=== PATIENT | female | born 1945 | race Caucasian/White ===

== ENCOUNTER → 2024-02-11 12:33 | Outpatient (REF) | payer OTHER, SELFPAY | LOC: WDC 12:33 | PROVIDERS: ATTENDING PHYSICIAN Internal Medicine | DX: Z12.31 Encounter for screening mammogram for malignant neoplasm of breast (principal); M85.80 Other specified disorders of bone density and structure, unspecified site | CPT/HCPCS: 77063; 77067; 77080 ==

== ENCOUNTER → 2024-03-20 06:20 | Day surgery (SDC) | payer OTHER, SELFPAY | LOC: GI 06:20 | PROVIDERS: ATTENDING PHYSICIAN Specialist | DX: K22.70 Barrett's esophagus without dysplasia (principal); K44.9 Diaphragmatic hernia without obstruction or gangrene; K21.00 Gastro-esophageal reflux disease with esophagitis, without bleeding; K31.7 Polyp of stomach and duodenum | CPT/HCPCS: 43239; 88305 ==

== ENCOUNTER 2024-12-01 06:06 | Day surgery (SDC) | payer OTHER, SELFPAY ==
[2024-11-04 14:03] VITALS: BMI 32.5
[2024-11-04 14:29] LABS: Hematocrit 40.7 % (37.0-47.0); Hemoglobin 13.5 g/dL (12.0-16.0); Mean Corp Hgb Conc. 33.2 g/dL (33.0-37.0); Mean Corpuscular Hgb 29.2 pg (27.0-31.0); Mean Corpuscular Volume 88.1 fL (81.0-99.0); Mean Platelet Volume 10.6 fL (7.4-10.4); Platelet Count 260 10^3/uL (130-400); Red Blood Cell Count 4.62 10^6/uL (4.20-5.40); Red Cell Dist. Width 14.6 % (11.5-14.5); White Blood Cell Count 6.8 10^3/uL (4.8-10.8)
[2024-11-04 15:08] VITALS: BMI 32.5
[2024-11-04 15:29] LABS: ALT (SGPT) 41 U/L (0-35); AST (SGOT) 31 U/L (14-36); Albumin 4.5 g/dl (3.5-5.0); Alkaline Phosphatase 114 U/L (38-126); Blood Urea Nitrogen 19 mg/dl (7-17); Calcium 9.4 mg/dl (8.4-10.2); Carbon Dioxide 27 mmol/L (22-30); Chloride 105 mmol/L (98-107); Estimated Creatinine Clearance 61 ml/min; Glucose 84 mg/dl (70-99); Sodium 143 mmol/L (135-145); Total Bilirubin 0.6 mg/dl (0.2-1.3); Total Protein 6.8 g/dl (6.3-8.2); eGFR > 60.00
[2024-11-05 10:22] LABS: Glycohemoglobin (HgbA1c) 6.5 % (4.0-5.6)
--- NOTE | 2024-11-17 13:33 | VNURNOTE ---
Patient is scheduled for an elective R TKA on 12/01- She is a same day patient with Dr Broderick. Spoke with patient prior to surgery. Introduced role of [facility] VN Liaison. Patient reports that she lives alone in a one-story in-law suite attached
to her son's house.
There are 2 [address] to enter. No pets in her in-law suite.
She has a shower chair, grab bars, cane and rolling walker.
She had VN services after her prior knee replacement and was same day surgery.
PCP is Dr Naina Patel.
Reviewed [facility] joint protocol and post surgical plans.
Reviewed that she will have VN services initially and will then start outpatient PT.
Patient selects [facility] VN for home care needs and will go to [facility] for outpatient PT. Scheduled for 12/04.
Patient is in agreement with plan and states that her daughter will pick her up after surgery. She stated that her family and daughters will assist after surgery. Advised to bring RW with her day of surgery. Referral placed in [facility].
Plan: [facility] VN per [facility] joint protocol then outpt PT on 12/04
[2024-12-01] VITALS (12 sets, daily range): BP systolic 90–140; BP diastolic 48–86; PULSE 85; O2SAT 98
[2024-12-01] MEDS: CELEBREX 200 MG PO (06:41)
[2024-12-01] MEDS: TYLENOL 650 MG PO (06:41)
[2024-12-01] MEDS: NORMOSOL-R/PLASMALYTE-A 1000 IV (06:42)
--- NOTE | 2024-12-01 06:57 | W.DS.TRANS ---
DC Summary - Director It Project
-
Discharge Instructions:
Sleep Apnea Risk Intermediate
Discharge Diagnosis/Procedures R TKA 12/01/25
Diet As tolerated
Activity With Walker
Additional Activity Adequate hydration, minimize Oxy and wear TEDs
stockings to prevent low blood pressure/
dizziness
Driving Restrictions No driving
Bathing Restrictions OK to Shower
Other Services PT
Instructions:
Stand-Alone Forms: SDS Total Hip and Knee D/C
Changes to Home Medications: Yes
Discharge Medications:
DC Medications w/original date entered in [employer]
L.acidoph,paracasei,B.animalis 10 billion cell capsule 1 ea PO DAILY 01/20/21
ascorbic acid (vitamin C) 1,000 mg tablet (Vitamin C) 1,000 mg PO DAILY 01/20/21
atorvastatin 40 mg tablet 40 mg PO QPM 01/20/21
coenzyme Q10 50 mg capsule (Co Q-10) 100 mg PO DAILY 01/20/21
magnesium oxide 500 mg capsule 500 mg PO DAILY 01/20/21
multivitamin 1 ea PO DAILY 01/20/21
cholecalciferol (vitamin D3) 125 mcg (5,000 unit) tablet (Vitamin D3) 125 mcg PO DAILY 05/11/22
krill 350 mg-omega-3 90 mg-dha 24 mg-epa 50 mp-njlmpyh-uuous capsule (Cactus-3 Krill Oil) 1 cap PO DAILY 05/11/22
omeprazole 20 mg tablet,delayed release 20 mg PO DAILY 11/03/24
zinc acetate 50 mg (zinc) capsule 50 mg PO DAILY 11/03/24
celecoxib 200 mg capsule 200 mg PO DAILY Anti-inflammatory #14 caps 11/04/24
dexamethasone 4 mg tablet 4 mg PO BID inflammation #6 tabs 11/04/24
gabapentin 300 mg capsule 300 mg PO HS sleep/pain #10 caps 11/04/24
mupirocin 2 % topical ointment 1 applic topical BID infection prevention #1 tube 11/04/24
ondansetron 4 mg disintegrating tablet 4 mg PO Q6H PRN n/v #20 tabs 11/04/24
oxycodone 5 mg tablet 5 mg PO Q6H PRN 1 tab moderate pain, 2 tabs severe pain #30 tabs 11/04/24
acetaminophen 325 mg tablet (Tylenol) 650 mg (2 x 325 mg) PO QID #1 tab 12/01/24
aspirin 325 mg tablet 325 mg PO DAILY blood clot prevention #1 tab 12/01/24
docusate sodium 100 mg capsule (Colace) 100 mg PO BID stool softner #1 cap 12/01/24
hydrochlorothiazide 12.5 mg tablet 12.5 mg PO DAILY #1 tab 12/01/24
lisinopril 5 mg tablet 5 mg PO DAILY #0 tabs 12/01/24
magnesium hydroxide 400 mg/5 mL oral suspension (Milk of Magnesia) 30 ml PO HS PRN constipation #1 mL 12/01/24
sennosides 8.6 mg tablet (Senokot) 17.2 mg (2 x 8.6 mg) PO BID laxative #2 tabs 12/01/24
Home Medication Changes
celecoxib 200 mg capsule 200 mg PO DAILY Anti-inflammatory #14 caps 11/04/24
dexamethasone 4 mg tablet 4 mg PO BID inflammation #6 tabs 11/04/24
gabapentin 300 mg capsule 300 mg PO HS sleep/pain #10 caps 11/04/24
mupirocin 2 % topical ointment 1 applic topical BID infection prevention #1 tube 11/04/24
ondansetron 4 mg disintegrating tablet 4 mg PO Q6H PRN n/v #20 tabs 11/04/24
oxycodone 5 mg tablet 5 mg PO Q6H PRN 1 tab moderate pain, 2 tabs severe pain #30 tabs 11/04/24
acetaminophen 325 mg tablet (Tylenol) 650 mg (2 x 325 mg) PO QID #1 tab 12/01/24
aspirin 325 mg tablet 325 mg PO DAILY blood clot prevention #1 tab 12/01/24
docusate sodium 100 mg capsule (Colace) 100 mg PO BID stool softner #1 cap 12/01/24
hydrochlorothiazide 12.5 mg tablet 12.5 mg PO DAILY #1 tab 12/01/24
lisinopril 5 mg tablet 5 mg PO DAILY #0 tabs 12/01/24
magnesium hydroxide 400 mg/5 mL oral suspension (Milk of Magnesia) 30 ml PO HS PRN constipation #1 mL 12/01/24
sennosides 8.6 mg tablet (Senokot) 17.2 mg (2 x 8.6 mg) PO BID laxative #2 tabs 12/01/24
Pending Results: No
--- NOTE | 2024-12-01 10:09 | W.PN.ORTHO ---
Today's Communication / Plan
-
Pt can be d/c if VS remain stable, she voids, and passes with PT.
Assessment
.
Distal Motor Intact: Yes
Dressing:
Clean, dry and intact.
Assessment:
R knee OA s/p R TKA w/ Dr Broderick 12/01/24
- Pt assessed in SDS. Feels well and voices no complaints. No pain. BP mildly low but asymptomatic. Eager to work w/ PT.
- Has rolling walker. She can WBAT RLE using this device
- R knee dressing C/D/I. Strength equal in both LEs. No complaints of calf pain w/ palpitation, dorsiflexion of feet.
- Has picked up Rx and advised OTC meds. Did explain how to use each. Pt is aware of bowel regimen, adequate hydration while on narcs to prevent constipation
- Douglas to be removed at 2 week f/u appointment - per pt, appointment is set. Dressing off in 7 days as long as bleeding remains minimal.
- Will initially have VN and home PT per [facility] protocol. Will transition to outpatient PT at [facility] on 12/04 (appt set). Does have script per daughter who is an RN.
- Will be staying in in-law suite on daughter's property. Both daughters will be assisting as she recovers
DVT prophylaxis - ASA 325 mg x4 weeks
HTN - mildly low BP in SDS but asymptomatic; oral hydration encouraged and TEDS in place - + parameters to BP meds upon d/c
Hyperlipidemia
GERD with Moseley's esophagus
DDD
Anxiety
Osteopenia
Borderline diabetes
Obesity, BMI 32.5
Plan
.
Surgery / Date: R TKA w/ Dr Broderick 12/01/2024
Activity:
Out of bed.
PT/OT
Discharge Plan: Home w/ VN (w/ transition to outpatient PT 12/04)
Subjective
.
.:
Pt resting comfortably in SDS.
R knee pain minimal.
Denies any new significant complaints.
Vital Signs and Labs
.
Vital Signs and Labs:
Lab Results
11/04/24 13:43
11/04/24 13:43
Temp Pulse Resp BP Pulse Ox
97.0 F 54 13 102/48 97
12/01/24 09:30 12/01/24 09:45 12/01/24 09:45 12/01/24 09:45 12/01/24 09:45
Physical Exam
-
HEENT: No pallor, cyanosis, or jaundice. Throat clear.
NECK: Supple. No JVD.
RESPIRATORY: Lungs clear to auscultation.
CVS: S1, S2 normal. RRR.�
ABDOMEN: Soft, non-tender. No distension. Obese.
EXTREMITIES: Strength equal, no calf pain with palpation/dorsiflexion. Calves soft.
MANAGER PART: AOx3. No focal deficits. wall to wall carpet installer grossly intact
[2024-12-01] MEDS: ANCEF 5 IV (11:09)
[2024-12-01] MEDS: ROXICODONE 5 MG PO (11:23)
== END 2024-12-01 12:45 | disposition home or self-care (01) ==
LOC: SDS 06:06
PROVIDERS: ATTENDING PHYSICIAN Specialist; FAMILY PHYSICIAN Internal Medicine
DX: M17.11 Unilateral primary osteoarthritis, right knee (principal); M85.80 Other specified disorders of bone density and structure, unspecified site
CPT/HCPCS: 27447; 36415; 73560; 80053; 83036; 85027; 87070; 93005; 97162; C1713; C1776

== ENCOUNTER → 2025-03-19 12:47 | Outpatient (REF) | payer OTHER, SELFPAY | LOC: WDC 12:47 | PROVIDERS: ATTENDING PHYSICIAN Internal Medicine | DX: Z12.31 Encounter for screening mammogram for malignant neoplasm of breast (principal) | CPT/HCPCS: 77063; 77067 ==